=== PATIENT | female | born 1945 | race Caucasian/White ===

== ENCOUNTER 2017-07-29 09:35 | Emergency (ER) | payer OTHER, MEDICAID ==
[2017-07-29 09:52] VITALS: BP 133/95
--- NOTE | 2017-07-29 10:58 | EDPHY ---
H & P Time Seen by Provider: 07/29/17 09:58 HPI/ROS: CHIEF COMPLAINT: Left foot pain HISTORY OF PRESENT ILLNESS: 71-year-old female presents to the emergency department with pain in her left foot. She states 2 weeks ago she was having some pain and some mild swelling in her left ankle. She denies any known trauma or injury. She states that that pain resolved and now she has pain in her left foot. She again did does not recall any known trauma or injury. She denies numbness or tingling in her toes. She has pain especially when she tries to bear weight. ROS: Denies numbness or tingling in her toes, pain in her left ankle currently , pain or left knee or hip. Denies rash. Denies fevers or chills. Past Medical/Surgical History: Anxiety, hepatitis-C, osteoporosis,"vertebral problems" Social History: Single and lives in [place] Smoking Status: Current every day smoker Physical Exam: Examination left foot feels Constitutional: Initial Vital Signs Temperature (C) 36.5 C 07/29/17 09:50 Heart Rate 85 07/29/17 09:50 Respiratory Rate 16 07/29/17 09:50 Blood Pressure 133/95 H 07/29/17 09:50 O2 Sat (%) 97 07/29/17 09:50 O2 Delivery Mode Room Air Allergies/Adverse Reactions: No Known Allergies Allergy (Unverified 07/29/17 09:49) Home Medications: Medication Instructions Recorded Ibuprofen 07/29/17 MDM/Departure - MDM Imaging Results: Imaging Impressions Foot X-Ray 07/29/17 10:18 Impression: 1. No underlying osseous abnormality left foot. 2. Soft tissue swelling over the forefoot. Imaging: I viewed and interpreted images myself Procedures: Patient was placed in a postop shoe and examined post application in good placement with normal [employer]ESS[employer]. ED Course/Re-evaluation: 71-year-old female presents to the emergency department with left foot pain. X- rays reveal no fractures. The patient was seen in the emergency department 3 years ago with similar complaints. I see no signs of cellulitis. I did discuss the possibility of developing vesicular rash consistent with zoster. I see no evidence of zoster currently. I encouraged follow up with her primary care provider and she was given orthopedic referral. - Depart Disposition: Home, Routine, Self-Care Clinical Impression: Left foot pain Condition: Good Instructions: Metatarsalgia (DC) Additional Instructions: Postop shoe for comfort and support. Weightbear as tolerated. Ibuprofen 400 mg every 8 hr as needed for pain. Follow up with orthopedic surgery to recheck within 1 week. Return to the emergency department or follow up with her primary care provider if you develop blistering type rash, increasing pain, swelling, fever, red streaking up your leg, or if you feel worse in any way. Referrals: Gabriel Bethea MD [Medical Doctor] - 2-3 days without fail (Orthopedic surgeon on-call) Jazlyn Loyola MD [Primary Care Provider] - 2-3 days without fail
== END 2017-07-29 11:20 | disposition home or self-care (01) ==
DX: M79.672 Pain in left foot (principal); F17.200 Nicotine dependence, unspecified, uncomplicated